=== PATIENT | male | born 1985 | race Hispanic/Latino ===

== ENCOUNTER 2019-08-17 01:29 | Emergency (ER) | payer MEDICAID, OTHER ==
[2019-08-17] MEDS ORDERED: SODIUM CHLORIDE 0.9% 1000ML 1,000 ML IV ONE (01:50)
[2019-08-17] MEDS ORDERED: ONDANSETRON HCL 4 MG/2 ML VIAL ONE (01:50)
[2019-08-17] MEDS ORDERED: KETOROLAC TROMETHAMINE 30MG/ML ONE (01:50)
[2019-08-17 02:08] LABS: BASOPHILS % (AUTO) 0.4 % (0.0-5.0); EOSINOPHILS % (AUTO) 1.5 % (0.0-8.0); HEMATOCRIT 45.3 % (42-54); LYMPHOCYTES % (AUTO) 33.2 % (21.0-51.0); MEAN CORPUSCULAR VOLUME 87.5 fL (79-99); MONOCYTES % (AUTO) 7.9 % (3.0-13.0); NEUTROPHILS % (AUTO) 56.7 % (40.0-77.0); PLATELET COUNT (AUTO) 290 K/uL (130-400); RED BLOOD CELL COUNT(AUTO) 5.18 MIL/uL (4.50-6.20); RED CELL DISTRIBUTION WIDTH 12.9 % (11.0-15.5); WHITE BLOOD COUNT (AUTO) 9.1 K/uL (4.8-10.8)
[2019-08-17 02:10] LABS: APPEARANCE,URINE Clear (CLEAR); BILIRUBIN,URINE Negative (NEGATIVE); COLOR,URINE Yellow (YELLOW); GLUCOSE, URINE (UA) Negative (NEGATIVE); KETONES,URINE Trace mg/dL (NEGATIVE); LEUKOCYTE ESTERASE ,URINE Negative (NEGATIVE); NITRATE,URINE Negative (NEGATIVE); OCCULT BLOOD,URINE Negative (NEGATIVE); PH,URINE 5.5 (5.0-8.0); PROTEIN,URINE Negative (NEGATIVE)
[2019-08-17 02:46] LABS: CREATININE 1.2 mg/dL (0.5-1.5); POTASSIUM 4.5 mmol/L (3.5-5.1)
[2019-08-17 02:51] LABS: ALBUMIN 3.5 g/dL (3.5-5.0); BILIRUBIN,TOTAL 0.4 mg/dL (0.2-1.0); TOTAL PROTEIN, SERUM 7.8 g/dL (6.0-8.3)
[2019-08-17] MEDS ORDERED: IOHEXOL-350 75 ML VIAL IV ONE (02:56)
[2019-08-17] MEDS ORDERED: LIDOCAINE HCL 2% VISCOUS 15 ML UDCUP ONE (04:49)
[2019-08-17] MEDS ORDERED: MAG HYDROX/AL HYDROX/SIMETH ES 30 ML SUSP UDCUP ONE (04:49)
== END 2019-08-17 05:40 | disposition home or self-care (01) ==
LOC: EDH 01:29
DX: R10.32 Left lower quadrant pain (principal); R10.12 Left upper quadrant pain; E66.9 Obesity, unspecified; Z68.42 Body mass index [BMI] 45.0-49.9, adult; Z90.49 Acquired absence of other specified parts of digestive tract
CPT/HCPCS: 36415; 71045; 74177; 80053; 81003; 82550; 83690; 83880; 84484; 85025; 93005; 96374; 96375; 99285; J1885; J2405; J7030; Q9967

== ENCOUNTER 2020-03-12 18:18 | Emergency (ER) | payer OTHER | END 2020-03-12 19:27 | disposition home or self-care (01) | LOC: EDH 18:18 | DX: S43.402A Unspecified sprain of left shoulder joint, initial encounter (principal); X58.XXXA Exposure to other specified factors, initial encounter; Y93.89 Activity, other specified; Y92.098 Other place in other non-institutional residence as the place of occurrence of the external cause; Y99.8 Other external cause status | CPT/HCPCS: 73030 ==

== ENCOUNTER 2023-02-14 17:24 | Emergency (ER) | payer OTHER ==
[~2023-02-14] VITALS: Ht 167.6 cm; Wt 129.3 kg
[2023-02-14 17:24] VITALS: BP 145/82; PULSE 62; RESP 18
[2023-02-14] MEDS ORDERED: ONDANSETRON ODT 4MG TAB SL ONE (18:00)
[2023-02-14] MEDS ORDERED: KETOROLAC 30MG VIAL (30MG/ML) IM ONE (18:00)
[2023-02-14] MEDS ORDERED: ONDA4TAB10 PO (18:57)
[2023-02-14] MEDS ORDERED: NAPR-1180 PO (18:57)
== END 2023-02-14 19:23 | disposition home or self-care (01) ==
LOC: EDH 17:24
DX: R51.9 Headache, unspecified (principal); Z79.899 Other long term (current) drug therapy; Z90.49 Acquired absence of other specified parts of digestive tract
CPT/HCPCS: 99283; 96372; J1885

== ENCOUNTER 2023-11-26 19:13 | Emergency (ER) | payer OTHER ==
[~2023-11-26] VITALS: Ht 167.6 cm; Wt 127.0 kg
[~2023-11-26 19:13] MED LIST: NAPR-1180 PO; ONDA-243 PO
[2023-11-26 19:41] LABS: BASOPHILS # (AUTO) 0.03 K/uL (0.00-0.20); BASOPHILS % (AUTO) 0.3 % (0.0-5.0); EOSINOPHILS % (AUTO) 1.1 % (0.0-8.0); HEMATOCRIT 45.2 % (42-54); IMMATURE GRANULOCYTE ABSOLUTE 0.03 K/uL (0-1); LYMPHOCYTES # (AUTO) 2.1 K/uL (1.0-4.8); LYMPHOCYTES % (AUTO) 23.9 % (21.0-51.0); MEAN CORPUSCULAR HEMOGLOBIN 29.1 pg (27.0-33.0); MEAN CORPUSCULAR HGB CONC 33.8 g/dL (32.0-36.0); MEAN CORPUSCULAR VOLUME 85.9 fL (79-99); MONOCYTES # (AUTO) 0.9 K/uL (0.1-1.0); MONOCYTES % (AUTO) 9.8 % (3.0-13.0); NEUTROPHILS # (AUTO) 5.6 K/uL (1.8-7.7); NEUTROPHILS % (AUTO) 64.6 % (40.0-77.0); PLATELET COUNT (AUTO) 256 K/uL (130-400); RED BLOOD CELL COUNT(AUTO) 5.26 MIL/uL (4.50-6.20); RED CELL DISTRIBUTION WIDTH 13.4 % (11.0-15.5); WHITE BLOOD COUNT (AUTO) 8.7 K/uL (4.8-10.8)
[2023-11-26] MEDS: 0.9%NACL 1000ML 1,000 ML IV ONE (19:49)
[2023-11-26] MEDS: PANTOPRAZOLE 40 MG/VIAL IVP ONE (19:49)
[2023-11-26 19:56] LABS: CREATININE 1.2 mg/dL (0.5-1.3); POTASSIUM 3.6 mmol/L (3.5-5.1)
[2023-11-26 20:02] LABS: B-TYPE NATRIURETIC PEPTIDE < 5 pg/mL (0-100)
[2023-11-26 20:04] LABS: ALBUMIN 3.4 g/dL (3.5-5.0); BILIRUBIN,TOTAL 0.4 mg/dL (0.2-1.0); MAGNESIUM 1.9 mg/dL (1.80-2.40); TOTAL PROTEIN, SERUM 7.2 g/dL (6.0-8.3)
[2023-11-26] MEDS: NITROGLYCERIN 1GM OINT 1 INCH/1GM TD ONE (20:09)
[2023-11-26 20:41] LABS: AMPHET/METH SCREEN,URINE NEGATIVE (NEGATIVE); BARBITURATE SCREEN, URINE NEGATIVE (NEGATIVE); BENZODIAZEPINES SCREEN,URINE NEGATIVE (NEGATIVE); CANNABINOID SCREEN,URINE NEGATIVE (NEGATIVE); COCAINE SCREEN,URINE NEGATIVE (NEGATIVE); OPIATE SCREEN,URINE NEGATIVE (NEGATIVE); PHENCYCLIDINE SCREEN,URINE NEGATIVE (NEGATIVE)
[2023-11-26] MEDS: KETOROLAC 30MG VIAL (30MG/ML) IVP ONE (21:28)
[2023-11-26 22:03] VITALS: BP 115/62; PULSE 70; RESP 16; O2SAT 96
== END 2023-11-26 22:04 | disposition home or self-care (01) ==
LOC: EDH 19:13
DX: R07.89 Other chest pain (principal); Z90.49 Acquired absence of other specified parts of digestive tract
CPT/HCPCS: 99285; 96374; 71045; 96375; 82550; 83735; 84484 ×3; 80053; 83880; 80305; 85025; 36415; 93005; J7030; J1885; C9113

== ENCOUNTER 2025-04-03 13:49 | Emergency (ER) | payer BC ==
[~2025-04-03] VITALS: Ht 167.6 cm; Wt 138.3 kg
--- NOTE | 2025-04-03 14:01 | ERN ---
ED Note History of Present Illness Stated Complaint: FLULIKE SYMPTOMS Chief Complaint: Flu Symptoms Time Seen by MD: 13:52 Dictation: PATIENT IS A 39-YEAR-OLD MALE COMING IN WITH FLU-LIKE SYMPTOMS TO INCLUDE LOW- GRADE FEVER, SORE THROAT WITH PAINFUL SWALLOWING BODY ACHES CLEAR RHINITIS FOR TWO DAYS. NO NAUSEA VOMITING NO DIARRHEA NO LOSS OF TASTE OR SMELL. NO PRIMARY CARE DOCTOR. HE IS AFEBRILE IN TRIAGE. STATES HE WAS RECENTLY EXPOSED TO CO- WORKER WHO HAD STREP THROAT. Allergies: Coded Allergies: No Known Drug Allergies (Unverified Allergy, Unknown, 02/14/23) Home Meds Active Scripts Ondansetron (Ondansetron Odt) 4 Mg Tab.rapdis, 8 MG PO Q8H PRN for NAUSEA/VOMITING, #15 TAB Prov:ALEENA DOWLING 02/14/23 Naproxen (Naprosyn) 500 Mg Tablet, 500 MG PO BIDPC for 10 Days, #20 TAB 0 Refills Prov:ALEENA DOWLING 02/14/23 Past Medical History Past Medical History: No Pertinent History Surgical History: Appendectomy, Cholecystectomy RN Note Reviewed/Agreed w/PFSH: Yes Review of System Dictation CONSTITUTIONAL: NEGATIVE EXCEPT FOR HPI FEVER CHILLS HEAD/FACE: NEGATIVE EXCEPT FOR HPI EENT: NEGATIVE EXCEPT FOR HPI CLEAR RUNNY NOSE WITH SORE THROAT RESPIRATORY: NEGATIVE EXCEPT FOR HPI GASTROINTESTINAL/ABDOMINAL: NEGATIVE EXCEPT FOR HPI GENITOURINARY: NEGATIVE EXCEPT FOR HPI MUSCULOSKELETAL: NEGATIVE EXCEPT FOR HPI INTEGUMENTARY: NEGATIVE EXCEPT FOR HPI NEUROLOGICAL/PSYCH: NEGATIVE EXCEPT FOR HPI HEMATOLOGIC/LYMPHATIC: NEGATIVE EXCEPT FOR HPI ALL SYSTEMS NEGATIVE, EXCEPT NOTED ABOVE. 13 POINT REVIEW OF SYSTEMS ASSESSED AND ALL NEGATIVE EXCEPT FOR ABOVE. Initial Vital Sign VS Vital Signs Date Time Temp Pulse Resp B/P (MAP) Pulse Ox O2 Delivery O2 Flow Rate FiO2 04/03/25 13:50 98.4 107 20 122/85 99 Room Air 04/03/25 13:58 0 21 Physical Exam Dictation VITAL SIGNS REVIEWED GENERAL APPEARANCE: ALERT, ORIENTED X 3, MILD ACUTE DISTRESS, WELL DEVELOPED, NOURISHED. HEAD AND FACE: NON-TRAUMATIC. EYES: PERRL, PINK CONJUNCTIVAS, EYELID NO TRAUMA, ANTERIOR CHAMBER WITH ARCUS SENILIS. EARS: PINNAS INTACT AND NO SIGNS OF TRAUMA OR ERYTHEMA EAR CANALS CLEAR AND NO DISCHARGE TM NO ERYTHEMA NOSE: N CLEAR DISCHARGE, NO BLEEDING. OROPHARYNX: MOUTH NORMAL, TONGUE PINK, PHARYNX CLEAR,NO ERYTHEMA, TONSILS 2/4 BILATERALLY CRYPTIC., NO ABSCESSES NOTED, MUCOUS MEMBRANE MOIST UVULA MIDLINE, VOICE IS CLEAR EXUDATE NECK: SUPPLE, NON-TENDER, NO THYROMEGALY, NO MASSES, NO JVD, NO BRUITS BREAST:DEFERRED CHEST:NO TENDERNESS, NO CREPITUS, NO PARADOXICAL MOVEMENT, NO RETRACTIONS LUNGS:CLEAR, WELL-VENTILATED, SYMMETRIC, NO RALES, NO WHEEZING, NO RHONCHI, NO STRIDOR, GOOD BREATH SOUNDS BILATERALLY HEART: REGULAR RATE, REGULAR RHYTHM, NO MURMUR, NO GALLOPS VASCULAR: NO PERIPHERAL EDEMA, ABDOMEN: SOFT, POSITIVE BOWEL SOUNDS, NONDISTENDED, NO GUARDING, NONTENDER, NO REBOUND, NO MASSES NO HEPATOMEGALY, NO SPLENOMEGALY, NO SHELDON'S SIGN, NO HERNIAS. RECTAL: DEFERRED GENITAL: DEFERRED NEUROLOGICAL: NORMAL SPEECH, MOTOR FUNCTION INTACT, SENSORY FUNCTION INTACT MUSCULOSKELETAL: NECK NONTENDER, FULL RANGE OF MOTION, BACK NONTENDER, FULL RANGE OF MOTION, EXTREMITIES: NONTENDER, FULL RANGE OF MOTION SKIN: COLOR PINK, DRY, NO TURGOR, NO RASH, NO LACERATIONS, NO ABRASIONS, NO CONTUSIONS. LYMPHATIC: DEFERRED Results (Laboratory/Radiology) Laboratory/Radiology Laboratory Tests Test 04/03/25 13:55 Influenza Type A Antigen Negative For Type A Influenza Type B Antigen Negative For Type B SARS-CoV-2 Antigen (Rapid) PRESUMPTIVE NEGATIVE Group A Streptococcus Rapid positive (NEGATIVE) *A Labs Reviewed?: Yes ED Course ED Course Orders Procedure Category Date Status Time Covid19 (Sars Antigen LAB 04/03/25 Complete Rapid) 13:53 Rapid (Group A Strep) LAB 04/03/25 Complete 13:53 Influenza Type A & B, LAB 04/03/25 Complete Rapid 13:53 Acetaminophen 500mg PHA 04/03/25 Complete Tab (Tylenol 500mg T 14:00 Current Medications Medications (Trade) Dose Ordered Sig/Reynaldo Route PRN Reason Start Time Stop Time Status Last Admin Dose Admin Acetaminophen (TYLenol 500MG TAB) 1,000 mg ONCE ONCE PO 04/03/25 14:00 04/03/25 14:01 DC 04/03/25 14:09 Vital Signs Date Time Temp Pulse Resp B/P (MAP) Pulse Ox O2 Delivery O2 Flow Rate FiO2 04/03/25 13:58 98.4 107 20 122/85 99 Room Air* 0 21 04/03/25 13:50 98.4 107 20 122/85 99 Room Air 1435/PATIENT POSITIVE FOR STREPTOCOCCAL TONSILLITIS. AUGMENTIN 875 WE WILL BE GIVEN P.O.. PATIENT DISCHARGED HOME WITH SEVEN MORE DAYS A MEDROL DOSEPAK. IN ADDITION HE WILL BE WRITTEN OUT OF WORK UNTIL 04/05/2025 Medical Decision Making MDM MEDICAL DISCHARGE MAKING BASED ON SWABS FOR FLU COVID AND STREP AFTER PATIENT EXPOSED TO STREPTOCOCCAL CO-WORKER PATIENT POSITIVE FOR STREP A AUGMENTIN 875 INITIATED PATIENT DISCHARGED HOME WITH SEVEN DAYS OF AUGMENTIN WITH MEDROL DOSEPAK NO WORK UNTIL 04/05/2025 DX & DISP Disposition: Discharge Departure Impression: Primary Impression: Acute streptococcal tonsillitis Additional Impression: Fever Condition: Stable Scripts Methylprednisolone (Medrol) 4 Mg Tab.ds.pk 1 TAB PO AD for 6 Days, #21 TAB 0 Refills 6 on day 1 then reduce by one tablet daily until gone Prov: CHELSEY MICHAUD 04/03/25 Amoxicillin/Potassium Clav (Amox Tr-K Clv 875-125 mg Tab) 875 Mg-125 Mg Tablet 1 EACH PO BID for 7 Days, #14 TAB 0 Refills Prov: CHELSEY MICHAUD 04/03/25 Additional Instructions: FOLLOW-UP WITH PRIMARY CARE PROVIDER IN 1 TO 2 DAYS. TAKE MEDICATIONS DIRECTED HERE IN THE EMERGENCY ROOM. OKAY TO CONTINUE HOME MEDICATIONS UNLESS OTHERWISE DISCUSSED DURING YOUR VISIT IN THE EMERGENCY ROOM TODAY. RETURN TO YOUR NEAREST EMERGENCY ROOM IF SYMPTOMS WORSEN OR IF THERE IS NO IMPROVEMENT. CALL 911 IF YOU NEED IMMEDIATE ASSISTANCE. TAKE TYLENOL OR MOTRIN [id number] NEEDED AND IF NO CONTRAINDICATIONS ARE PRESENT. INCREASE ORAL HYDRATION. A WOUND CULTURE OR URINE CULTURE WAS ORDERED HERE IN THE EMERGENCY ROOM DEPARTMENT PLEASE FOLLOW-UP WITH PRIMARY CARE PROVIDER AND ADVISE THEM TO GET REPEAT PORTS FROM OUR FACILITY. IF YOU HAD ANY KYLEIGH WRAP/SPLINTS THAT WERE APPLIED HERE, PLEASE DO NOT REMOVE THEM UNTIL YOU SEE YOUR PRIMARY CARE OR SPECIALTY. TAKE ANTIBIOTICS DIRECTED UNTIL GONE. TAKE MEDROL DOSEPAK DIRECTED UNTIL GONE. INCREASE YOUR WATER INTAKE. NO WORK UNTIL 04/05/2025 Referrals: SELF,REFERRAL (PCP) Time of Disposition: 14:40 I have reviewed the case, and I agree with, Diagnosis and Plan CHELSEY MICHAUDP Apr 03, 2025 14:01
[2025-04-03 14:31] LABS: INFLUENZA TYPE A Negative For Type A (NEGATIVE); INFLUENZA TYPE B Negative For Type B (NEGATIVE)
[2025-04-03 14:33] LABS: COVID19 (SARS ANTIGEN RAPID) PRESUMPTIVE NEGATIVE (NEGATIVE)
[2025-04-03 14:36] LABS: RAPID GROUP A STREP positive (NEGATIVE)
[2025-04-03] MEDS ORDERED: AMOX1TAB16 PO (14:41)
[2025-04-03] MEDS ORDERED: METH4TAB3 PO (14:41)
[2025-04-03] MEDS: AMOX/CLAV 875/125MG TAB PO STA (14:48)
[2025-04-03 15:16] VITALS: BP 122/85; PULSE 100; RESP 15; TEMP 98.6; O2SAT 98
== END 2025-04-03 15:17 | disposition home or self-care (01) ==
LOC: EDH 13:49
DX: J03.00 Acute streptococcal tonsillitis, unspecified (principal); Z90.49 Acquired absence of other specified parts of digestive tract; Z20.822 Contact with and (suspected) exposure to COVID-19
CPT/HCPCS: 87426; 87804; 87880; 99283